=== PATIENT | male | born 1980 | race Caucasian/White ===

== ENCOUNTER 2017-01-18 10:18 | Emergency (ER) | payer OTHER ==
[~2017-01-18] VITALS: Ht 185.4 cm; Wt 158.0 kg
[2017-01-18 11:28] LABS: HEMATOCRIT 44.7 % (39.2-51.8); HEMOGLOBIN 15.1 g/dL (13.7-18.0); WHITE BLOOD COUNT 12.6 x10^3/uL (3.4-10)
[2017-01-18] MEDS ORDERED: SODIUM CHLORIDE FLUSH 10ML SYR IVF ONE (11:30)
[2017-01-18 11:40] LABS: BLOOD UREA NITROGEN 11 mg/dL (7-18)
[2017-01-18] MEDS ORDERED: HYDROmorphone 1 MG/ML, 1ML ONE ×2 (11:52→14:16)
[2017-01-18] MEDS: HYDROmorphone 1 MG/ML, 1ML IVPush PRN ×2 (11:54→14:22)
[2017-01-18] MEDS ORDERED: HYDROmorphone 1 MG/ML, 1ML IVPush PRN (12:30)
[2017-01-18] MEDS ORDERED: OMNIPAQUE 350 MG/ML, 150 ML BOTTLE ONE (13:16)
[2017-01-18] MEDS ORDERED: PIPERACILLIN/TAZO/PMX 3.375GM 50 ML ONE (14:16)
[2017-01-18] MEDS ORDERED: SODIUM CHLORIDE 0.9% 1,000ML IVBOLUS ONE (14:30)
[2017-01-18] MEDS ORDERED: PIPERACILLIN/TAZO/PMX 4.5GM 100 ML IV ONE (14:30)
[2017-01-18 15:27] VITALS: BP 132/88
== END 2017-01-18 15:29 | disposition home or self-care (01) ==
LOC: ED 11:09
DX: K61.1 Rectal abscess (principal); Z87.891 Personal history of nicotine dependence
CPT/HCPCS: 36415; 74177; 80048; 82040; 85025; 96365; 96375; 96376; 99285; J1170; J2543; J7030; Q9967

== ENCOUNTER 2017-01-22 14:36 | Day surgery (SDC) | payer OTHER ==
[~2017-01-22] VITALS: Ht 185.4 cm; Wt 153.0 kg
[2017-01-22] MEDS ORDERED: LACTATED RINGERS 1,000 ML IV SCH (15:04)
[2017-01-22] MEDS ORDERED: POLYETHYLENE GLYCOL (15:07)
[2017-01-22] MEDS ORDERED: ONDA4TAB10 PO (15:07)
[2017-01-22] MEDS ORDERED: OXYC-302 PO (15:07)
[2017-01-22] MEDS ORDERED: AMOX1TAB64 PO (15:07)
[2017-01-22 15:39] VITALS: BP 142/91
[2017-01-22] MEDS ORDERED: MIDAZOLAM 1 MG/ML, 2ML ONE ×2 (15:48→18:03)
[2017-01-22] MEDS ORDERED: FENTANYL PF 100 MCG/2ML ONE ×4 (15:48→17:45)
[2017-01-22] MEDS ORDERED: PROPOFOL 10 MG/ML, 50ML ONE (16:23)
[2017-01-22] MEDS ORDERED: ONDANSETRON 2MG/ML, 2ML ONE (16:23)
[2017-01-22] MEDS ORDERED: DEXAMETHASONE 4 MG/ML, 1ML ONE (16:23)
[2017-01-22] MEDS ORDERED: SUCCINYLCHOLINE 20 MG/ML, 10ML ONE (16:23)
[2017-01-22] MEDS ORDERED: ROCURONIUM 10 MG/ML ONE (16:23)
[2017-01-22] MEDS ORDERED: CEFAZOLIN 1,000 MG ONE (16:23)
[2017-01-22] MEDS ORDERED: BUPIVACAINE/PF 0.25% ONE (16:50)
[2017-01-22] MEDS ORDERED: EPINEPHRINE 1 MG/ML, 1ML ONE (16:50)
[2017-01-22] MEDS ORDERED: BUPIVACAINE/PF 0.25% INFIL ONE (16:51)
[2017-01-22] MEDS ORDERED: EPINEPHRINE 1 MG/ML, 1ML INFIL ONE (16:52)
[2017-01-22] MEDS ORDERED: OXYcodone 5 MG/5 ML ORAL.SOL UDC PO PRN (17:00)
[2017-01-22] MEDS ORDERED: ACETAMINOPHEN 325 MG TABLET PO PRN (17:00)
[2017-01-22] MEDS ORDERED: LABETALOL 5MG/ML, 20ML IV PRN (17:00)
[2017-01-22] MEDS ORDERED: PROMETHAZINE 25 MG/ML, 1ML IV PRN (17:00)
[2017-01-22] MEDS ORDERED: ONDANSETRON 2MG/ML, 2ML IVPush PRN (17:00)
[2017-01-22] MEDS ORDERED: MEPERIDINE/PF 25MG/0.5ML IVPush PRN (17:00)
[2017-01-22] MEDS ORDERED: hydrALAzine 20 MG/ML, 1ML IV PRN (17:00)
[2017-01-22] MEDS ORDERED: MIDAZOLAM 1 MG/ML, 2ML IV PRN (17:00)
[2017-01-22] MEDS ORDERED: ALBUTEROL/IPRATROPIUM 2.5MG/0.5MG, 3 ML NPPB PRN (17:00)
[2017-01-22] MEDS ORDERED: OXYcodone 5 MG/5 ML ORAL.SOL UDC ONE (17:10)
[2017-01-22] MEDS ORDERED: ACETAMINOPHEN 650 MG/20.3 ML UDC ONE (17:10)
[2017-01-22] MEDS: FENTANYL PF 100 MCG/2ML IV PRN ×4 (17:13→18:00)
[2017-01-22] MEDS ORDERED: HYDROmorphone 1 MG/ML, 1ML ONE ×2 (17:26→17:45)
[2017-01-22] MEDS: HYDROmorphone 1 MG/ML, 1ML IV PRN ×4 (17:29→17:55)
== END 2017-01-22 20:28 | disposition home or self-care (01) ==
LOC: OR 14:36
PROVIDERS: ATTEND Surgery
DX: K61.1 Rectal abscess (principal); K21.9 Gastro-esophageal reflux disease without esophagitis; E66.9 Obesity, unspecified; Z87.39 Personal history of other diseases of the musculoskeletal system and connective tissue; Z68.42 Body mass index [BMI] 45.0-49.9, adult; Z87.891 Personal history of nicotine dependence
CPT/HCPCS: 46080; 87070; 87075; 87076; 87205; J0171; J0330; J0690; J1100; J1170; J2250; J2405; J2704; J3010; J3490; J7120

== ENCOUNTER 2018-02-10 10:18 | Emergency (ER) | payer BC, OTHER ==
[~2018-02-10] VITALS: Ht 185.4 cm; Wt 140.9 kg
[~2018-02-10 10:18] MED LIST: AMOX1TAB64 PO; ONDA4TAB10 PO; OXYC-302 PO; POLYETHYLENE GLYCOL
[2018-02-10] MEDS ORDERED: methylPREDNISolone SOD SUCC 125 MG/2 ML IVPush SCH (12:30)
[2018-02-10] MEDS ORDERED: SODIUM CHLORIDE FLUSH 10ML SYR IVF ONE (12:30)
[2018-02-10 12:57] LABS: BASOPHILS # (AUTO) 0.03 x10^3/uL (0-0.1); BASOPHILS % (AUTO) 0 % (0-1); EOSINOPHILS # (AUTO) 0.71 x10^3/uL (0-0.4); EOSINOPHILS % (AUTO) 7 % (1-7); LYMPHOCYTES # (AUTO) 2.03 x10^3/uL (1-3.4); LYMPHOCYTES % (AUTO) 19 % (22-44); MD NO; MEAN CORPUSCULAR HEMOGLOBIN 29.1 pg (27.5-34.5); MEAN CORPUSCULAR HGB CONC 33.6 g/dL (33.2-36.2); MEAN CORPUSCULAR VOLUME 86.6 fL (81-97); MEAN PLATELET VOLUME 7.9 fL (7.4-10.4); MONOCYTES # (AUTO) 0.68 x10^3/uL (0.2-0.8); MONOCYTES % (AUTO) 6 % (2-9); NEUTROPHILS # (AUTO) 7.21 x10^3/uL (1.8-6.8); NEUTROPHILS % (AUTO) 68 % (42-75); PLATELET COUNT 418 x10^3/uL (130-400); RED BLOOD COUNT 5.44 x10^6/uL (4.38-5.82); RED CELL DISTRIBUTION WIDTH 14.1 % (9.4-14.8)
[2018-02-10] MEDS ORDERED: methylPREDNISolone SOD SUCC 125 MG/2 ML IVPush ONE (13:00)
[2018-02-10 13:10] LABS: ALANINE AMINOTRANSFERASE 20 U/L (12-78); ALBUMIN 3.6 g/dL (3.4-5.0); ANION GAP 9 mmol/L (5-15); CALCIUM 8.6 mg/dL (8.5-10.1); CHLORIDE 110 mmol/L (98-107)
[2018-02-10 13:12] LABS: ALKALINE PHOSPHATASE 101 U/L (45-117); BILIRUBIN,TOTAL 0.5 mg/dL (0.2-1.0); CREATININE 1.23 mg/dL (0.7-1.3); SALICYLATE LEVEL 2.7 mg/dL (2.8-20.0); TOTAL PROTEIN 7.6 g/dL (6.4-8.2)
[2018-02-10] MEDS ORDERED: methylPREDNISolone SOD SUCC 125 MG/2 ML ONE (13:13)
[2018-02-10 14:44] VITALS: BP 134/84
== END 2018-02-10 15:12 | disposition home or self-care (01) ==
LOC: ED 11:34
DX: L40.0 Psoriasis vulgaris (principal); Z87.891 Personal history of nicotine dependence
CPT/HCPCS: 36415; 80053; 80329; 85025; 93971; 96374; 99285; J2930; G0480